=== PATIENT | male | born 1950 | race Caucasian/White ===

== ENCOUNTER 2020-02-13 16:38 | Outpatient (CLI) | payer OTHER | END 2020-02-13 16:39 | disposition home or self-care (01) | LOC: COV 16:38 | PROVIDERS: ATTEND Family Medicine | DX: R05 Cough (principal); M79.10 Myalgia, unspecified site; R53.83 Other fatigue | CPT/HCPCS: 81599 ==

== ENCOUNTER 2020-08-19 10:26 | Outpatient (CLI) | payer MEDICARE | END 2020-08-19 10:27 | disposition home or self-care (01) | LOC: COV 10:26 | PROVIDERS: ATTEND Family Medicine | DX: M79.10 Myalgia, unspecified site (principal); R53.83 Other fatigue; R68.83 Chills (without fever); Z20.828 Contact with and (suspected) exposure to other viral communicable diseases ==